=== PATIENT | male | born 1960 | race Caucasian/White ===

== ENCOUNTER → 2024-01-16 07:43 | Outpatient (REF) | payer OTHER, SELFPAY ==
--- NOTE | 2024-01-16 07:49 | CA_ITS ---
Transthoracic Echocardiogram Patient (Last, First, Middle): James Ortega T Gender: Male Date of : 1960 Age: 63 Procedure Date: 01/16/2024 Procedure Type: Transthoracic Echocardiogram Location: OP Height: 167.64 cm Weight: 74.84 kg BSA: 1.84 m2 Heart Rate: bpm BP: 130 / 72 mmHg Workforce Manager: TO Referring MD: Yohan Hanley DO, MD Symptoms: W/U CA MURMUR Study Quality: Adequate ECG Rhythm: Sinus bradycardia Conclusions: - The left ventricular systolic function is normal. The calculated ejection fraction is 67% by biplane method. - The left atrium is moderately dilated. - There is mild calcification of the aortic valve. - There is mild dilatation of the ascending aorta measuring 4.10 cm. Findings Left Ventricle Normal left ventricular cavity size. The left ventricular systolic function is normal. The calculated ejection fraction is 67% by biplane method. There is no evidence of regional wall motion abnormalities. Diastolic function is normal for age. There is mild septal asymmetric hypertrophy. Right Ventricle Mildly increased right ventricular cavity size. There is normal right ventricular systolic function. Atria The left atrium is moderately dilated. The right atrium is normal in size. Aortic Valve There is a normal trileaflet aortic valve. There is mild calcification of the aortic valve. There is no aortic valve stenosis. There is no aortic valve regurgitation. Mitral Valve The mitral valve appears normal. There is no mitral valve regurgitation. There is no mitral valve stenosis. Pulmonic Valve The pulmonic valve is likely normal. Tricuspid Valve There is mild tricuspid valve regurgitation. There is no evidence of pulmonary hypertension. Great Vessels The aortic arch is normal in size. There is mild dilatation of the ascending aorta measuring 4.10 cm. Venous The inferior vena cava is normal in size and collapses greater than 50% with inspiration. Pericardium/Pleural There is no evidence of pericardial effusion. Prior Study Comparison Changes noted compared to prior study dated: 12/08/2019. Increase in left atrial size. Measurements 2D Linear Measurements IVSd: 1.28 0.6-0.9/0.6-1.0 cm LVIDd: 4.35 3.9-5.3/4.2-5.9 cm LVIDd Index: 2.36 2.4-3.2/2.2-3.1 cm/m2 LVIDs: 2.73 2.0-3.6 cm LVPWd: 0.85 0.7-1.1 cm LA Diam: 3.70 2.7-3.8/3.0-4.0 cm LAIDs Index: 2.01 1.5-2.3 cm/m2 LV Mass: 196.98 67-162/88-224 g LV Mass Index: 107.06 43-95/49-115 g/m2 LVOT Diam: 2.10 3.0+(-)1.3 cm 2D Systolic Function EF 4C: 65.20 >55% EF 2C: 67.90 >55% EF BiP: 67.30 >55% Mitral Valve MV Pk E: 0.91 MV PK A: 0.64 MV Decel Time: 268.00 E/A: 1.40 E'Lateral: 7.62 E'Medial: 6.53 E/E' Med: 14.00 E/E' Lat: 12.00 PHT: 78.00 MVA PHT: 2.82 Decel [place]: 3.41 Aortic Valve AoV Pk Miquel: 1.74 AoV Mn Miquel: 1.22 AoV VTI: 0.45 AoV Pk Grad: 12.00 Aov Mn Grad: 7.00 FIDEL Cont.VTI: 2.14 LVOT LVOT Pk Miquel: 1.13 LVOT Mn Miquel: 0.62 LVOT VTI: 0.28 LVOT Pk Grad: 5.00 LVOT Mn Grad: 2.00 LVOT Diam: 2.10 LVOT Area: 3.46 Diastolic Function MV Pk E: 0.91 MV Pk A: 0.64 E/A: 1.40 E'Medial: 6.53 E/E' Med: 14.00 E' Laterial: 7.62 E/E' Lat: 12.00 Right Ventricle TAPSE (mm): 22.20 TVS' Miquel: 11.60 Tricuspid Valve TR Pk Miquel: 2.28 TR Pk Grad: 21.00 RA Press: 3.00 RVSP: 24.00 Great Vessels Aorta Sinus of Valsalva: 3.44 2.0-3.5 cm Ao Asc: 4.10 2.1-3.4 cm Ao Arch: 3.10 Updated in Other Vendor System with Status of Final Arden Lange MD electronically signed on 01/17/2024 11:31:55 AM with status of Final
--- NOTE | 2024-01-16 07:50 | CA_ITS ---
Acquisition Time: 2024-01-16 09:17:00 Total Exercise Time: 00:09:53 Test Indications: HX OF CHEST PAIN,LEFT SIDE Medications: Protocol: GHANSHYAM Max HR: 148 BPM 95% of Pred: 155 BPM Max BP: 154/078 mmHG Max Work Load: 11.5 METS Exercise stress test with exercise 9 min 53 sec of Ghanshyam protocol, achieving 95% MPHR, 11.5 METs, without anginal symptoms, with isolated PACs and PVCs, with normotensive response to exercise, without EKG changes meeting criteria for ischemia. Test reviewed with Dr Lange. Referred By: Yohan Hanley Overread By: YASMIN SAUNDERS
== END ==
LOC: HO.CARD 07:43
PROVIDERS: PCP Internal Medicine; Visit Provider Internal Medicine
DX: R01.1 Cardiac murmur, unspecified (principal); R07.89 Other chest pain
CPT/HCPCS: 93017; 93306

== ENCOUNTER → 2024-01-16 07:50 | Outpatient (BNV) | payer OTHER, SELFPAY | PROVIDERS: PCP Internal Medicine; Visit Provider Nurse Practitioner Family | DX: I49.3 Ventricular premature depolarization (principal); I49.1 Atrial premature depolarization | CPT/HCPCS: 93016; 93018; 93320; 93325; 93350 ==

== ENCOUNTER → 2025-03-16 07:55 | Outpatient (REF) | payer MEDICARE, SELFPAY ==
--- NOTE | 2025-03-16 08:00 | CA_ITS ---
Transthoracic Echocardiogram Patient (Last, First, Middle): James Ortega T Gender: M Date of : 1960 Age: 65 Procedure Date: 03/16/2025 Procedure Type: Transthoracic Echocardiogram Location: OP Height: 167.64 cm Weight: 73.48 kg BSA: 1.83 m2 Heart Rate: bpm BP: 124 / 80 mmHg Sanitizer: Referring MD: Yohan Hanley DO, MD Symptoms: F/U AORTIC DILATION Study Quality: Good ECG Rhythm: Sinus Conclusions: - The left ventricular systolic function is normal. The calculated ejection fraction is 64% by biplane method. - There is moderate calcification of the aortic valve. There is mild aortic valve stenosis. - Top normal ascending aortic size at 3.8 cm. Findings Left Ventricle Normal left ventricular cavity size. There is normal left ventricular wall thickness. The left ventricular systolic function is normal. The calculated ejection fraction is 64% by biplane method. There is no evidence of regional wall motion abnormalities. Diastolic function is normal for age. Right Ventricle Mildly increased right ventricular cavity size. There is normal right ventricular systolic function. Atria The left atrium is moderately dilated. The right atrium is normal in size. Aortic Valve There is moderate calcification of the aortic valve. There is mild aortic valve stenosis. There is no aortic valve regurgitation. Cannot differentiate if bicuspid versus trileaflet. Mitral Valve The mitral valve appears normal. There is no mitral valve regurgitation. There is no mitral valve stenosis. Pulmonic Valve There is trace pulmonic valve regurgitation. Tricuspid Valve There is mild tricuspid valve regurgitation. There is no evidence of pulmonary hypertension. Great Vessels Top normal ascending aortic size at 3.8 cm. Venous The inferior vena cava is normal in size and collapses greater than 50% with inspiration. Pericardium/Pleural There is no evidence of pericardial effusion. Prior Study Comparison Changes noted compared to prior study dated: 01/16/2024. Ascending aortic size measurement smaller. Could also be technical. Measurements 2D Linear Measurements IVSd: 1.25 0.6-0.9/0.6-1.0 cm LVIDd: 3.74 3.9-5.3/4.2-5.9 cm LVIDd Index: 2.04 2.4-3.2/2.2-3.1 cm/m2 LVIDs: 2.37 2.0-3.6 cm LVPWd: 1.23 0.7-1.1 cm Ao Root: 3.70 2.1-3.5 cm LA Diam: 4.00 2.7-3.8/3.0-4.0 cm LAIDs Index: 2.19 1.5-2.3 cm/m2 LV Mass: 195.86 67-162/88-224 g LV Mass Index: 107.03 43-95/49-115 g/m2 LVOT Diam: 2.10 3.0+(-)1.3 cm 2D Systolic Function EF 4C: 61.50 >55% EF 2C: 67.50 >55% EF BiP: 64.30 >55% Mitral Valve MV Pk E: 0.53 MV PK A: 0.93 MV Decel Time: 255.00 E/A: 0.60 E'Lateral: 9.03 E'Medial: 7.18 E/E' Med: 7.40 E/E' Lat: 5.90 PHT: 75.00 MVA PHT: 2.93 Decel [place]: 3.74 Aortic Valve AoV Pk Miquel: 2.06 AoV Mn Miquel: 1.45 AoV VTI: 0.56 AoV Pk Grad: 17.00 Aov Mn Grad: 10.00 FIDEL Cont.VTI: 1.58 LVOT LVOT Pk Miquel: 0.98 LVOT Mn Miquel: 0.66 LVOT VTI: 0.26 LVOT Pk Grad: 4.00 LVOT Mn Grad: 2.00 LVOT Diam: 2.10 LVOT Area: 3.46 Diastolic Function MV Pk E: 0.53 MV Pk A: 0.93 E/A: 0.60 E'Medial: 7.18 E/E' Med: 7.40 E' Laterial: 9.03 E/E' Lat: 5.90 Right Ventricle TAPSE (mm): 27.00 TVS' Miquel: 11.00 Tricuspid Valve TR Pk Miquel: 2.50 TR Pk Grad: 25.00 RA Press: 3.00 RVSP: 28.00 Great Vessels Aorta Ao Root-2D: 3.70 2.0-3.7 cm Ao Asc: 3.80 2.1-3.4 cm Pulmonary Veins Pulm Vein S/D 1.80 Pulmonary Valve PV Pk Miquel: 1.13 Peak PV Grad: 5.00 Updated in Other Vendor System with Status of Final Arden Lange MD electronically signed on 03/16/2025 2:51:10 PM with status of Final
--- OUTSIDE RECORDS SUMMARY | 2025-03-16 08:00 | XMS_ITS ---
Author Name [facility] Organization Unknown History of Medication Use Medication Directions Dispensed Refills Start Date End Date Stat meloxicam 15 mg tablet Take 1 tablet every day by oral route as needed, for pain. 01/17/2024 active lidocaine (PF) 10 mg/mL (1 %) injection solution Take 20 mg by injection route. 12/26/2023 4 completed triamcinolone acetonide 40 mg/mL suspension for injection Take 40 mg by injection route. 12/26/2023 4 completed amoxicillin 500 mg capsule TAKE 4 TABS 1 HOUR PRIOR TO DENTAL APPT 4 active naproxen 500 mg tablet TAKE 1 TABLET BY MOUTH TWICE A DAY WITH FOOD 4 completed oxycodone 5 mg tablet TAKE DIRECTED 1-2 TABLETS EVERY 6 HOURS NEEDED PAIN DO NOT DRIVE WHILE TAKING THIS MEDICATION 4 completed triamcinolone acetonide 40 mg/mL suspension for injection active meloxicam 15 mg tablet active lidocaine (PF) 10 mg/mL (1 %) injection solution active albuterol sulfate HFA 90 mcg/actuation aerosol inhaler INHALE 1 PUFF INTO THE LUNGS EVERY 4 HOURS NEEDED FOR 30 DAYS active Problems Problem Status Onset Date Problem Type Date of Resoluti on Source Impingement syndrome of left shoulder region active 2023-12-26 ProblemAct [facility] Arthritis of knee active 2024-01-17 ProblemAct [facility] Osteoarthritis of left knee joint active 2024-01-17 ProblemAct [facility] Encounters Encounter Type Encounter Reason Primary Diagnosis Location Date Ambulatory [facility] [place] 03/13/2024 Ambulatory [facility] [place] 03/12/2024 Ambulatory [facility] 01/20/2024 Ambulatory [facility] [place] 01/17/2024 Ambulatory [facility] [place] 12/27/2023 Ambulatory [facility] 12/26/2023 Ambulatory [facility] [place] 12/26/2023 Ambulatory [facility] [place] 12/26/2023 Ambulatory [facility] [place] 12/25/2023 Ambulatory [facility] [place] 12/25/2023 Ambulatory [facility] [place] 12/25/2023 Ambulatory [facility] [place] 12/20/2023 Ambulatory [facility] [place] 12/20/2023 Ambulatory [facility] [place] 12/20/2023
== END ==
LOC: HO.CARD 07:55
PROVIDERS: PCP Internal Medicine; Visit Provider Internal Medicine
DX: I77.810 Thoracic aortic ectasia (principal)
CPT/HCPCS: 93306

== ENCOUNTER → 2025-03-16 08:00 | Outpatient (BNV) | payer MEDICARE, SELFPAY | PROVIDERS: PCP Internal Medicine; Visit Provider Internal Medicine | DX: I35.0 Nonrheumatic aortic (valve) stenosis (principal) | CPT/HCPCS: 93306 ==